=== PATIENT | female | born 1960 | race Asian ===

== ENCOUNTER 2017-09-02 06:45 | Day surgery (SDC) | END 2017-09-02 15:39 | disposition home or self-care (01) ==

== ENCOUNTER → 2018-03-01 | Outpatient (CLI) | END | disposition home or self-care (01) ==

== ENCOUNTER → 2018-03-02 | Outpatient (CLI) | END | disposition home or self-care (01) ==

== ENCOUNTER → 2018-06-22 | Outpatient (CLI) | payer BC ==
[~2018-06-22] MED LIST: ASPI81TA52 PO; ATEN50TA PO; DOXY100T21 PO; LOSA25TA12 PO; MECL-77 PO
== END | disposition home or self-care (01) ==
LOC: LAB 07:45
PROVIDERS: ATTEND Internal Medicine Cardiovascular Disease
DX: Z01.818 Encounter for other preprocedural examination (principal); I10 Essential (primary) hypertension; R07.9 Chest pain, unspecified; R01.1 Cardiac murmur, unspecified

== ENCOUNTER → 2018-06-22 | Outpatient (CLI) | payer BC ==
[~2018-06-22] MED LIST changes: -DOXY100T21 PO; -MECL-77 PO
== END | disposition home or self-care (01) ==
LOC: LAB 07:40
PROVIDERS: ATTEND Internal Medicine
DX: R07.9 Chest pain, unspecified (principal)
CPT/HCPCS: 71045; 80053; 80061; 82977; 84443; 85025

== ENCOUNTER 2018-06-27 06:00 | Emergency (ER) | payer BC ==
[~2018-06-27] VITALS: Ht 157.5 cm; Wt 75.7 kg
[2018-06-27 06:05] VITALS: Ht 157.5 cm; Wt 75.7 kg
[2018-06-27] MEDS ORDERED: SOD CHLORIDE 0.9% 1,000 ML IV STA (06:29)
[2018-06-27] MEDS ORDERED: MECLIZINE 12.5 MG TAB PO ONE (06:30)
[2018-06-27] MEDS ORDERED: LORAZEPAM 2 MG INJ IV ONE (06:30)
--- NOTE | 2018-06-27 07:24 | ERD ---
ER Documentation Chief Complaint Chief Complaint woke up feeling dizzy +nausea/vomiting. denies sob or cp HPI 57-year-old female history of borderline hypertension presents to the emergency room waking up this morning with vertigo. The patient describes a room spinning sensation when she moves her head to the left and stands up. She states that she feels nauseated and has had 1-2 episodes of nonbloody nonbilious emesis. She denies any slurred speech or motor weakness, no dysmetria or ataxia. She denies any headache. No chest pressure or chest discomfort. ROS All systems reviewed and are negative except as per history of present illness. Medications Home Meds Active Scripts Meclizine Hcl* (Meclizine Hcl*) 25 Mg Tablet, 25 MG PO Q8H PRN for DIZZINESS, #30 TAB Prov:RANULFO LOPEZ MD 06/27/18 Reported Medications Aspirin (Low Dose Aspirin) 81 Mg Tablet.dr, 81 MG PO DAILY, #30 TAB 09/02/17 Losartan Potassium* (Losartan Potassium*) 25 Mg Tablet, 25 MG PO DAILY, TAB 09/02/17 Atenolol* (Atenolol*) 50 Mg Tablet, 50 MG PO DAILY, #30 TAB 09/02/17 Allergies Allergies: Coded Allergies: No Known Allergy (Unverified , 06/27/18) PMhx/Soc History of Surgery: No Anesthesia Reaction: No Hx Neurological Disorder: No Hx Respiratory Disorders: No Hx Cardiac Disorders: Yes (HTN, HLD) Hx Psychiatric Problems: No Hx Miscellaneous Medical Probl: No Hx Alcohol Use: No Hx Substance Use: No Hx Tobacco Use: No Smoking Status: Never smoker FmHx Family History: No diabetes Physical Exam Vitals Vital Signs Date Temp Pulse Resp B/P (MAP) Pulse Ox O2 O2 Flow FiO2 Time Delivery Rate 06/27/18 64 17 174/95 100 Room Air 07:19 (121) 06/27/18 97.0 66 20 186/89 98 06:05 (121) Physical Exam General: Well developed, well nourished, no acute distress Head: Normocephalic, atraumatic. Eyes: Pupils equally reactive, EOM intact, reproducible horizontal nystagmus left greater than right, no vertical nystagmus or rotary nystagmus ENT: Moist mucous membranes Neck: Supple, no lymphadenopathy Respiratory: Lungs clear bilaterally, no distress Cardiovascular: RRR, no murmurs, rubs, or gallops Abdominal: Soft, non-tender, non-distended, no peritoneal signs : Deferred MSK: No edema, no unilateral swelling, 5/5 strength Neurologic: Alert and oriented, moving all extremities, normal speech, no focal weakness, no cerebellar signs, normal rapid alternating movements, no dysmetria, nystagmus as described above Skin: No rash Psych: Normal mood Results 24 hrs Current Medications Medications Dose Sig/Crystal Start Time Status Last (Trade) Ordered Route PRN Stop Time Admin Dose Reason Admin Sodium 1,000 ml @ Q1H STAT 06/27/18 DC 06/27/18 Chloride 1,000 mls/hr IV 06:29 06/27/18 07:20 07:28 Lorazepam 1 mg ONCE ONCE 06/27/18 DC 06/27/18 (Ativan) IV 06:30 06/27/18 07:20 06:32 Meclizine 25 mg ONCE ONCE 06/27/18 DC 06/27/18 HCl PO 06:30 06/27/18 07:20 (Antivert) 06:32 Procedures/MDM EKG, MONITORS, & DIAGNOSTIC IMAGING: CT brain: No acute process per radiologist verbal report EKG: I reviewed and interpreted a 12-lead EKG. Rhythm: Normal sinus rhythm ST Changes: No contiguous ST segment elevations T waves: No contiguous T wave inversions Impression: [No evidence of acute cardiac ischemia] MEDICAL DECISION MAKING: Signs and symptoms are very consistent with acute peripheral vertigo likely consistent with benign positional vertigo. The patient has no signs or symptoms concerning for central process. She has reproducible horizontal nystagmus and reproducible symptoms that are sudden in onset. She has an otherwise nonfocal neurologic exam. I highly doubt central process. Given the patient's age CT of the brain to rule out mass would be appropriate. Patient has no chest discomfort or exertional symptoms that would suggest cardiac etiology. Screening EKG at triage is normal. ER COURSE: * IV fluids Ativan and meclizine provided * Symptoms abated. Patient can be safely discharged with outpatient management. Return precautions were discussed and understood. CONSULTATION: [None] DISPOSITION PLAN: The patient does not have an identifiable emergent medical condition that warrants inpatient hospitalization at this time. The patient is deemed safe for discharge with outpatient follow-up. We discussed follow up with the patient's primary care doctor within 24 to 48 hours as needed. We also discussed return to the emergency room for worsening symptoms or worsening condition. Outpatient referral: Neurology PRN Discharge Medications: Meclizine Departure Diagnosis: Primary Impression: Peripheral vertigo Laterality: left Qualified Codes: H81.392 - Other peripheral vertigo, left ear Condition: Stable RANULFO LOPEZ MD Jun 27, 2018 07:24
[2018-06-27] MEDS ORDERED: MECL-77 PO (09:29)
[2018-06-27 10:10] VITALS: BP 170/80; PULSE 65; RESP 17
== END 2018-06-27 10:12 | disposition home or self-care (01) ==
LOC: E/R 06:00
DX: H81.392 Other peripheral vertigo, left ear (principal); I10 Essential (primary) hypertension; Z79.82 Long term (current) use of aspirin
CPT/HCPCS: 70450; 93005; 96374; 99285; J2060; J7030

== ENCOUNTER → 2018-07-14 | Outpatient (CLI) | payer BC ==
[~2018-07-14] MED LIST changes: +MECL-77 PO
== END | disposition home or self-care (01) ==
LOC: LAB 13:16
PROVIDERS: ATTEND Internal Medicine
DX: Z01.818 Encounter for other preprocedural examination (principal); I10 Essential (primary) hypertension; M19.90 Unspecified osteoarthritis, unspecified site
CPT/HCPCS: 80048; 81001; 85025; 85610; 85730; 87086

== ENCOUNTER 2018-07-20 08:09 | Day surgery (SDC) | payer BC ==
[2018-07-19 11:35] VITALS: Ht 157.5 cm; Wt 74.0 kg
[~2018-07-20] VITALS: Ht 157.5 cm; Wt 74.0 kg
[2018-07-20] VITALS (13 sets, daily range): BP systolic 94–166; BP diastolic 41–89; PULSE 52–64; RESP 16–20
--- NOTE | 2018-07-20 05:33 | HPN ---
Date/Time of Note Date/Time of Note DATE: 07/20/18 TIME: 05:33 Interval H&P Admission Note Pt. seen H&P reviewed: No system changes STEPHANY MOCTEZUMA MD July 20, 2018 05:33
--- NOTE | 2018-07-20 05:37 | OPR ---
Date/Time of Note Date/Time of Note DATE: 07/20/18 TIME: 05:33 Operative Report Procedure Date: July 20, 2018 Preoperative Diagnosis Left shoulder rotator cuff tear Postoperative Diagnosis 1. Left shoulder rotator cuff tear (supraspinatus) 2. Left shoulder partial biceps tendon tear 3. Left shoulder acromioclavicular joint arthritis 4. Left shoulder impingement Operation/Procedure Performed 1. Left shoulder arthroscopic rotator cuff repair 2. Left shoulder arthroscopic extensive debridement of glenohumeral joint 3. Left shoulder arthroscopic distal clavicle excision 4. Left shoulder arthroscopic acromioplasty with coracoacromial ligament release Surgeon see signature line Solution Lead Paul Richter PA-C Anesthesia Type: general Estimated Blood Loss: minimal Transfusion none Specimen None Grafts/Implants See op note Complications none Pt Condition Post Procedure: stable Disposition: PACU Procedure Description PIN DRAFTING MACHINE TENDER SURGEON: Paul Richter PA-C was asked to be present at my request as a result of the complexity associated with this procedure including positioning of the extremities, manipulation of the arthroscope and assistance with time. In my opinion the assistance offered by a cardiology technician is insufficient and Paul should be compensated for her time. PROCEDURE IN DETAIL: Following the administration of general anesthesia supplemented with a peripheral nerve block for postoperative pain control, the patient was examined under anesthesia. Examination of the left shoulder revea led some stiffness including a forward flexion of about 140 abduction 80 maximal external rotation with mild crepitus anteriorly. The patient was then placed in the right lateral decubitus position. Sterile prep and drape was then undertaken of the left shoulder. Anterior and posterior glenohumeral portals were established. Glenohumeral arthroscopy revealed that the humeral and glenoid articular cartilage had chondral articular injury The superior labrum was diffusely torn with extensive fraying superiorly. The biceps anchor was intact. There was moderate synovitis in the anterior recess with no significant subscapularis tearing at the leading edge. The supraspinatus and infraspinatus were visualized and there is diffuse tearing with evidence of perhaps a calcific tendinitis area in the past. The tearing was from the anterior to posterior measuring approximately 3 cm and medial lateral about 1.5 cm. There was extensive frayed tissue there. The superior labrum was then debrided down to stable tissue and extensive debridement from 9:00 to the 3 o'clock position was then undertaken. As mentioned, the biceps tendon was intact. The subacromial space was then entered and very severe bursal reactive tissue was noted. There was very thickened coracoacromial ligament and a prominent acromion. Coracoacromial ligament was then released and the anterior acromion was then beveled for a distance of 10 mm decompressing anteriorly with a acromioplasty being completed. And severe arthritic changes in the acromioclavicular joint. The distal clavicle was then cleared of soft tissue and severe arthritic changes were noted a distal clavicle excision was then performed resecting 10 mm of the lateral clavicle. A good decompression was confirmed. The cuff avulsion was then prepared for repair with a debridement down to a bleeding bed . The edges of the generative rotator cuff tissue is then debrided and prepared for a side to side rotator cuff repair. A 5.5 mm, triple loaded titanium anchor was then inserted into the tuberosity. Using suture penetrators, the sutures were then passed in a mattress fashion. Using sliding locking knots, the rotator cuff was then repaired. A solid repair was completed. The joint was then thoroughly irrigated, the deep tissues were approximated using 4-0 Monocryl, followed by a sterile dressing. A sling was then applied. The patient was awakened and transported to the recovery room in stable condition. STEPHANY MOCTEZUMA MD July 20, 2018 05:37
[~2018-07-20 08:09] MED LIST changes: +CEFAZOLIN 2 GM/50 ML (PMX) 50 ML IVPB ONE; +DEXAMETHASONE 2 MG TAB PO ONE; +DEXAMETHASONE 2 MG TAB PO SCH; +GABAPENTIN 300 MG CAP PO ONE; +GABAPENTIN 300 MG CAP PO SCH
[2018-07-20] MEDS ORDERED: ROPIVACAINE 0.2% 20 ML VIAL ONE (08:58)
[2018-07-20] MEDS ORDERED: MIDAZOLAM 1 MG/ML 2 ML INJ ONE (08:58)
[2018-07-20] MEDS ORDERED: FENTAnyl 50 MCG/ML VIAL ONE (08:58)
[2018-07-20] MEDS ORDERED: DOXY100T21 PO (09:00)
--- NOTE | 2018-07-20 09:21 | PREAC ---
Date/Time of Note Date/Time of Note DATE: 07/20/18 TIME: :17 Anesthesia Eval and Record Evaluation Time Pre-Procedure Interview DATE: 07/20/18 TIME: 09:17 Age 57 Sex female NPO: 8 hrs Preoperative diagnosis left rotator cuff tear Planned procedure left shoulder arthroscopoy rotator cuff repair Past Medical History Past Medical History: Includes Cardio: HTN Surgery & Anesthesia Issues No known issue Meds Anticoagulation: No Beta Nicole within 24 hr: No Reason Beta Nicole not given: Pt. not on B-Nicole Reported Medications Doxycycline Monohydrate* (Doxycycline Monohydrate*) 100 Mg Tablet, 100 MG PO BID, TAB 07/20/18 Losartan Potassium* (Losartan Potassium*) 25 Mg Tablet, 25 MG PO DAILY, TAB 09/02/17 Atenolol* (Atenolol*) 50 Mg Tablet, 50 MG PO DAILY, #30 TAB 09/02/17 Discontinued Reported Medications Aspirin (Low Dose Aspirin) 81 Mg Tablet.dr, 81 MG PO DAILY, #30 TAB 09/02/17 Discontinued Scripts Meclizine Hcl* (Meclizine Hcl*) 25 Mg Tablet, 25 MG PO Q8H PRN for DIZZINESS, #30 TAB Prov:RANULFO LOPEZ MD 06/27/18 Current Medications Dexamethasone (Decadron) 2 mg ONCE PO ; Start 07/19/18 at 07:00; Stop 07/20/18 at 11:00 Gabapentin (Neurontin) 300 mg PRE-OP PO ; Start 07/20/18 at 07:00; Stop 07/20/18 at 11:00 Meds reviewed: Yes Allergies Coded Allergies: No Known Allergy (Unverified , 07/20/18) Allergies Reviewed: Yes Labs/Studies Labs Reviewed: Reviewed by anesthesiologist test: N/A Studies: ECG (sr), CXR (nl) Pre-procedure Exam Last vitals Vital Signs Date Temp Pulse Resp B/P (MAP) Pulse Ox O2 O2 Flow FiO2 Time Delivery Rate 07/20/18 98.1 52 16 153/84 100 Room Air 09:04 (107) Airway: Adequate mouth opening Mallampati: Mallampati I Teeth: Abnormal (denture) Lung: Normal Heart: Normal ASA Physical Status ASA physical status: 2 Emergency: None Planned Anesthetic General/MAC: ETT Nerve block: Brachial plexus (left) Planned Pain Management Single shot nerve block, Parenteral pain med Pre-operative Attestations Prior to commencing anesthesia and surgery, the patient was re-evaluated, there was verification of: *The patient's identity *The results of appropriate recent lab work and preoperative vital signs *The above evaluation not changing prior to induction *Anesthetic plan, risk benefits, alternative and complications discussed with patient/family; questions answered; patient/family understands, accepts and wishes to proceed. NAVA OH MD July 20, 2018 09:21
[2018-07-20] MEDS ORDERED: FENTAnyl 50 MCG/ML VIAL IV PRN ×3 (09:30)
[2018-07-20] MEDS ORDERED: DIPHENHYDRAMINE 50 MG INJ IV PRN (09:30)
[2018-07-20] MEDS ORDERED: MEPERIDINE 25 MG INJ IV PRN (09:30)
[2018-07-20] MEDS ORDERED: KETOROLAC 30 MG INJ IV PRN (09:30)
[2018-07-20] MEDS ORDERED: HYDROmorphONE 1 MG/5 ML IV SYRINGE IV PRN ×3 (09:30)
[2018-07-20] MEDS ORDERED: ONDANSETRON 4 MG INJ IV PRN (09:30)
[2018-07-20] MEDS ORDERED: OXYCODONE/ACETAMINOPHEN (5/325) TAB PO PRN ×2 (09:30)
[2018-07-20] MEDS ORDERED: ONDANSETRON 4 MG INJ ONE (09:58)
[2018-07-20] MEDS ORDERED: CEFAZOLIN 1 GM INJ ONE (09:58)
[2018-07-20] MEDS ORDERED: METOCLOPRAMIDE 10 MG INJ ONE (09:58)
[2018-07-20] MEDS ORDERED: EPHEDrine 25 MG/5 ML SYG ONE (10:21)
--- NOTE | 2018-07-20 12:06 | PDOCDIS ---
Discharge Instructions DIAGNOSIS Discharge Diagnosis rotator cuff tearing CONDITION [id number] Patient Condition: [id number] Good HOME CARE INSTRUCTIONS: [id number] Diet Instructions: [id number] Regular ACTIVITY: [id number] Activity Restrictions: [id number] Slowly Increase Activity Keep Limb Elevated [id number] Bathing Restrictions: [id number] Shower FOLLOW UP/APPOINTMENTS Follow-up Plan 2 weeks SCHOOL/WORK RELEASE May return to School/Work with: With Restrictions School/Work Release Comment: Sling for four weeks STEPHANY MOCTEZUMA MD July 20, 2018 12:06
--- NOTE | 2018-07-21 11:04 | PAC ---
Date/Time of Note Date/Time of Note DATE: 07/21/18 TIME: 11:04 Post-Anesthesia Notes Post-Anesthesia Note Last documented vital signs Vital Signs Date Temp Pulse Resp B/P (MAP) Pulse Ox O2 O2 Flow FiO2 Time Delivery Rate 07/20/18 98.2 55 14:51 07/20/18 98.1 55 19 94/41 (58) 98 Room Air 13:08 07/20/18 54 13:00 Activity: WNL Respiratory function: WNL Cardiovascular function: WNL Mental status: Baseline Pain reasonably controlled: Yes Hydration appropriate: Yes Nausea/Vomiting absent: No NAVA OH MD July 21, 2018 11:04
== END 2018-07-20 16:10 | disposition home or self-care (01) ==
LOC: SDS 08:09
PROVIDERS: ATTEND Orthopaedic Surgery
DX: M75.102 Unspecified rotator cuff tear or rupture of left shoulder, not specified as traumatic (principal); S46.212D Strain of muscle, fascia and tendon of other parts of biceps, left arm, subsequent encounter; X58.XXXD Exposure to other specified factors, subsequent encounter; M25.812 Other specified joint disorders, left shoulder; I10 Essential (primary) hypertension
CPT/HCPCS: 29823; 29826; 29827; J0690; J2250; J2405; J2765; J2795; J3010